=== PATIENT | female | born 2000 | race Caucasian/White ===

== ENCOUNTER 2022-05-17 06:03 | Emergency (ER) | payer MEDICAID ==
[~2022-05-17] VITALS: Ht 162 cm; Wt 55.0 kg
[2022-05-17] MEDS ORDERED: NORE1TAB95 (06:17)
--- NOTE | 2022-05-17 06:32 | ED Abdominal Pain ---
General Chief Complaint: Abdominal/GI Problems Stated Complaint: ABD PAIN,WEAKNESS Nursing Triage Note: C/O LOWER ABDOMINAL CRAMPING/WEAKNESS SINCE 19305/16/22 Source of Information: Patient Exam Limitations: No Limitations History of Present Illness Date Seen by Provider: May 17, 2022 Time Seen by Provider: 06:14 Initial Comments Patient to the ER by private conveyance from home with chief complaint that since 1829 last night she has been experiencing some cramping nearly constant pain all over in her abdomen, worse in the suprapubic region. She does not have any vaginal discharge, dysuria, diarrhea or constipation. She took some Tylenol at 1600 yesterday for a headache but nothing for this. She does not have a history of colitis irritable or inflammatory. She does not have a history of abdominal surgeries. Last menstrual period was a month after her delivery in August 2021. She been having a little brown spotting off and on since then but never had a period. She has no significant familial history. No trauma. Her son will be 1-year-old tomorrow. He has a rash with blisters on his hands and feet consistent with sepq-rxkt-xmk-mouth disease. No other sick contacts or travel. She rates her pain as a 7 out of 10. She has a history of chlamydia in 2018 that was tested as well as had a negative test of cure. Allergies and Home Medications Allergies Coded Allergies: No Known Drug Allergies (Unverified , 05/17/22) Patient Home Medication List Home Medication List Reviewed: Yes Doxycycline Hyclate (Doxycycline Hyclate) 100 Mg Tablet, 100 MG PO BID Prescribed by: CITLALLI ARREAGA on 05/17/22 08 Norethindrone-E.estradiol-Iron (Lo Loestrin Fe 1-10 Tablet) 1MG-10(24) Tablet, (Reported) Entered as Reported by: GIANA ROJO on 05/17/22 0617 Last Action: New Order Ondansetron (Ondansetron Odt) 4 Mg Tab.rapdis, 4 MG PO Q6H PRN for NAUSEA/VOMITING Prescribed by: CITLALLI ARREAGA on 05/17/22 0807 Review of Systems Review of Systems Constitutional: see HPI, chills; No diaphoresis, No fever EENTM: No Blurred Vision, No Double Vision Respiratory: Denies Cough, Denies Shortness of Air Cardiovascular: Denies Chest Pain, Denies Edema, Denies Lightheadedness Gastrointestinal: See HPI; Denies Abdomen Distended; Abdominal Pain; Denies Constipated, Denies Diarrhea, Denies Nausea Genitourinary: Denies Burning, Denies Discharge Musculoskeletal: No back pain, No joint pain Skin: No pruritus, No rash Psychiatric/Neurological: Denies Headache, Denies Numbness All Other Systems Reviewed Negative Unless Noted: Yes Past Rpwbvfr-Kepxje-Onkneo Hx Patient Social History Tobacco Use?: No Substance use?: No Alcohol Use?: No Pt feels they are or have been: No Past Medical History Surgery/Hospitalization HX: DENIES Last Menstrual Period: Aug 13, 2021 Physical Exam Vital Signs Vital Signs - First Documented 05/17/22 06:12 Temp 36.8 Pulse 105 Resp 18 B/P (MAP) 129/79 (96) Pulse Ox 97 O2 Delivery Room Air Capillary Refill : Less Than 3 Seconds Height/Weight/BMI Height: '" Weight: lbs. oz. kg; 20.00 BMI Method: General Appearance: WD/WN, no apparent distress HEENT: PERRL/EOMI, pharynx normal Neck: non-tender, full range of motion, supple, normal inspection Respiratory: lungs clear, normal breath sounds, no respiratory distress, no accessory muscle use Cardiovascular: normal peripheral pulses, regular rate, rhythm Peripheral Pulses: 2+ Radial Pulses (R), 2+ Radial Pulses (L) Gastrointestinal: normal bowel sounds, no organomegaly (No splenomegaly), guarding, tenderness (Tender all 4 quadrants but especially suprapubic region and over left upper quadrant.), other (She does not have a Rovsing sign or psoas sign. ) Extremities: normal inspection, no pedal edema, normal capillary refill Neurologic/Psychiatric: alert, oriented x 3, other (Tearful, pained expression) Skin: normal color, warm/dry Progress/Results/Core Measures Results/Orders Lab Results Laboratory Tests Test 05/17/22 06:30 05/17/22 06:39 05/17/22 07:50 Range/Units Urine Color YELLOW Urine Clarity CLEAR Urine pH 6.0 5-9 Urine Specific [place] 1.025 H 1.016-1.022 Urine Protein NEGATIVE NEGATIVE Urine Glucose (UA) NEGATIVE NEGATIVE Urine Ketones NEGATIVE NEGATIVE Urine Nitrite NEGATIVE NEGATIVE Urine Bilirubin NEGATIVE NEGATIVE Urine Urobilinogen 0.2 < = 1.0 MG/DL Urine Leukocyte Esterase NEGATIVE NEGATIVE Urine RBC (Auto) NEGATIVE NEGATIVE Urine RBC NONE /HPF Urine WBC 0-2 /HPF Urine Squamous Epithelial Cells 0-2 /HPF Urine Crystals NONE /LPF Urine Bacteria NEGATIVE /HPF Urine Casts NONE /LPF Urine Mucus NEGATIVE /LPF Urine Culture Indicated NO White Blood Count 11.1 H 4.3-11.0 10^3/uL Red Blood Count 4.79 3.80-5.11 10^6/uL Hemoglobin 14.1 11.5-16.0 g/dL Hematocrit 41 35-52 % Mean Corpuscular Volume 86 80-99 fL Mean Corpuscular Hemoglobin 29 25-34 pg Mean Corpuscular Hemoglobin Concent 34 32-36 g/dL Red Cell Distribution Width 12.3 10.0-14.5 % Platelet Count 227 130-400 10^3/uL Mean Platelet Volume 11.2 9.0-12.2 fL Immature Granulocyte % (Auto) 0 % Neutrophils (%) (Auto) 86 H 42-75 % Lymphocytes (%) (Auto) 7 L 12-44 % Monocytes (%) (Auto) 6 0-12 % Eosinophils (%) (Auto) 1 0-10 % Basophils (%) (Auto) 0 0-10 % Neutrophils # (Auto) 9.5 H 1.8-7.8 10^3/uL Lymphocytes # (Auto) 0.8 L 1.0-4.0 10^3/uL Monocytes # (Auto) 0.7 0.0-1.0 10^3/uL Eosinophils # (Auto) 0.1 0.0-0.3 10^3/uL Basophils # (Auto) 0.0 0.0-0.1 10^3/uL Immature Granulocyte # (Auto) 0.0 0.0-0.1 10^3/uL Neutrophils % (Manual) 86 % Lymphocytes % (Manual) 6 % Monocytes % (Manual) 7 % Eosinophils % (Manual) 1 % Blood Morphology Comment NORMAL Sodium Level 138 135-145 MMOL/L Potassium Level 3.6 3.6-5.0 MMOL/L Chloride Level 105 98-107 MMOL/L Carbon Dioxide Level 20 L 21-32 MMOL/L Anion Gap 13 5-14 MMOL/L Blood Urea Nitrogen 10 7-18 MG/DL Creatinine 0.76 0.60-1.30 MG/DL Estimat Glomerular Filtration Rate 115 BUN/Creatinine Ratio 13 Glucose Level 92 70-105 MG/DL Calcium Level 9.3 8.5-10.1 MG/DL Corrected Calcium 9.0 8.5-10.1 MG/DL Total Bilirubin 0.7 0.1-1.0 MG/DL Aspartate Amino Transf (AST/SGOT) 15 5-34 U/L Alanine Aminotransferase (ALT/SGPT) 14 0-55 U/L Alkaline Phosphatase 50 40-136 U/L C-Reactive Protein High Sensitivity 0.67 H 0.00-0.50 MG/DL Total Protein 7.6 6.4-8.2 GM/DL Albumin 4.4 3.2-4.5 GM/DL Lipase 33 8-78 U/L Monoscreen NEGATIVE NEGATIVE Micro Results Microbiology 05/17/22 Wet Prep - Final, Complete My Orders Orders - CITLALLI ARREAGA Ed Iv/Invasive Line Start (05/17/22 06:32) Lactated Ringers (Lr 1000 Ml Iv Solution (05/17/22 06:45) Ketorolac Injection (Toradol Injection) (05/17/22 06:45) Pantoprazole Injection (Protonix Injecti (05/17/22 06:45) Ua Culture If Indicated (05/17/22 06:32) Urine Bedside (05/17/22 06:32) Cbc With Automated Diff (05/17/22 06:32) Comprehensive Metabolic Panel (05/17/22 06:32) Hs C Reactive Protein (05/17/22 06:32) Lipase (05/17/22 06:32) Monotest (05/17/22 06:32) Manual Differential (05/17/22 06:39) Syphilis Antibody Screen (05/17/22 07:56) Wet Prep (05/17/22 07:56) Neisseria Gonorrhea Swab (05/17/22 07:56) Chlamydia Trachomatis Swab (05/17/22 07:56) Ceftriaxone (Rocephin) (05/17/22 08:00) Azithromycin Tablet (Zithromax Tablet) (05/17/22 08:00) Medications Given in ED Current Medications Medications Dose Ordered Sig/Elsie Route Start Time Stop Time Status Last Admin Dose Admin Ketorolac Tromethamine 30 mg ONCE ONCE IVP 05/17/22 06:45 05/17/22 06:46 DC 05/17/22 06:43 30 MG Lactated Ringer's 1,000 ml @ 0 mls/hr Q0M ONCE IV 05/17/22 06:45 05/17/22 06:46 DC 05/17/22 06:43 0 MLS/HR Pantoprazole 40 mg ONCE ONCE IV 05/17/22 06:45 05/17/22 06:46 DC 05/17/22 06:43 40 MG Vital Signs/I&O 05/17/22 06:12 Temp 36.8 Pulse 105 Resp 18 B/P (MAP) 129/79 (96) Pulse Ox 97 O2 Delivery Room Air Blood Pressure Mean: 96 Progress Progress Note #1: Time: 06:46 Progress Note Patient has pretty exquisite tenderness throughout her abdomen but especially the suprapubic region and left upper quadrant. She has a sore throat so we will get a monoscreen. She could have something viral, such as gastroenteritis. Less likely she is developing irritable bowel/inflammatory bowel symptoms. She is not having any diarrhea or bloody stools. She has not had a menstrual cycle in a while so we will take a good sexual history and check a bedside . We will check some labs including a CRP and a lipase. We will also consider things like pelvic inflammatory disease, ectopic , other. We will give her a liter of fluids, 30 mg of Toradol for her discomfort and then reassess her. Progress Note #2: Time: 08:01 Progress Note Labs are unremarkable. Patient has agreed to do a self swab of the cervix for gonorrhea, chlamydia. We added a syphilis antibody screen. We will give her a half a gram of Rocephin IV and 1 g of azithromycin p.o. to treat gonorrhea and chlamydia respectively. Plan to put her out on doxycycline for 2 weeks. Return precautions were given. Patient states her pain is now 2 out of 10 and was much more comfortable. Departure Impression Primary Impression: Abdominal pain Qualified Codes: R10.30 - Lower abdominal pain, unspecified Additional Impressions: PID (acute pelvic inflammatory disease) Bacterial vaginitis Disposition: 01 HOME, SELF-CARE Condition: Stable Departure-Patient Inst. Decision time for Depature: 08:34 Referrals: NO,LOCAL PHYSICIAN (PCP/Family) Primary Care Physician Patient Instructions: Pelvic Inflammatory Disease, Severe Abdominal Pain Add. Discharge Instructions: Drink plenty of fluids. Tylenol 1000 mg every 8 hours as needed for pain. Ibuprofen 800 mg every 8 hours needed for pain. You can also try Gas-X every 4-6 hours as needed for pain. Doxycycline 1 capsule twice a day for 2 weeks. Flagyl/metronidazole 1 tablet twice a day with food for a week. Probiotics 1 capsule twice a day for 2 weeks to prevent diarrhea associated with antibiotic use. Ondansetron 1 tablet every 6 hours as needed for nausea or vomiting. Expect some improvement in 3 to 4 days on antibiotics. Return to the ER promptly if you are having intractable pain, intractable vomiting or other worrisome symptoms. All discharge instructions reviewed with patient and/or family. Voiced understanding. Scripts Metronidazole (Metronidazole) 500 Mg Tablet 500 MG PO BID for 7 Days, #14 TAB 0 Refills Prov: CITLALLI ARREAGA 05/17/22 Ondansetron (Ondansetron Odt) 4 Mg Tab.rapdis 4 MG PO Q6H PRN for NAUSEA/VOMITING, #8 TAB 0 Refills Prov: CITLALLI ARREAGA 05/17/22 Doxycycline Hyclate (Doxycycline Hyclate) 100 Mg Tablet 100 MG PO BID for 14 Days, #28 TAB 0 Refills Prov: CITLALLI ARREAGA 05/17/22 Work/School Note: Work Release Form Date Seen in the Emergency Department: May 17, 2022 Return to Work: May 21, 2022 Restrictions: No Restrictions CITLALLI ARREAGA May 17, 2022 06:31
[2022-05-17 06:45] LABS: BILIRUBIN,URINE NEGATIVE (NEGATIVE); CLARITY,URINE CLEAR; COLOR,URINE YELLOW; GLUCOSE, URINE (UA) NEGATIVE (NEGATIVE); KETONES,URINE NEGATIVE (NEGATIVE); LEUKOCYTE ESTERASE ,URINE NEGATIVE (NEGATIVE); NITRITE,URINE NEGATIVE (NEGATIVE); PROTEIN,URINE NEGATIVE (NEGATIVE)
[2022-05-17] MEDS ORDERED: PANTOPRAZOLE 40 MG (PROTONIX) VIAL IV ONE (06:45)
[2022-05-17] MEDS ORDERED: KETOROLAC 30 MG/ML VIAL IVP ONE (06:45)
[2022-05-17] MEDS ORDERED: LACTATED RINGERS 1,000 ML IV ONE (06:45)
[2022-05-17 06:52] LABS: BACTERIA,URINE NEGATIVE /HPF; SQUAMOUS EPITHELIAL CELL,UR 0-2 /HPF; WBC,URINE 0-2 /HPF
[2022-05-17 07:11] LABS: BASOPHILS % (AUTO) 0 % (0-10); EOSINOPHILS # (AUTO) 0.1 10^3/uL (0.0-0.3); EOSINOPHILS % (AUTO) 1 % (0-10); HEMATOCRIT 41 % (35-52); HEMOGLOBIN 14.1 g/dL (11.5-16.0); LYMPHOCYTES # (AUTO) 0.8 10^3/uL (1.0-4.0); LYMPHOCYTES % (AUTO) 7 % (12-44); MEAN CORPUSCULAR HEMOGLOBIN 29 pg (25-34); MEAN CORPUSCULAR HGB CONC 34 g/dL (32-36); MEAN CORPUSCULAR VOLUME 86 fL (80-99); MEAN PLATELET VOLUME 11.2 fL (9.0-12.2); MONOCYTES # (AUTO) 0.7 10^3/uL (0.0-1.0); MONOCYTES % (AUTO) 6 % (0-12); NEUTROPHILS # (AUTO) 9.5 10^3/uL (1.8-7.8); NEUTROPHILS % (AUTO) 86 % (42-75); PLATELET COUNT 227 10^3/uL (130-400); WHITE BLOOD COUNT 11.1 10^3/uL (4.3-11.0)
[2022-05-17 07:21] LABS: ALBUMIN 4.4 GM/DL (3.2-4.5); POTASSIUM 3.6 MMOL/L (3.6-5.0)
[2022-05-17 07:22] LABS: CALCIUM 9.3 MG/DL (8.5-10.1)
[2022-05-17 07:23] LABS: TOTAL PROTEIN 7.6 GM/DL (6.4-8.2)
[2022-05-17 07:25] LABS: BILIRUBIN,TOTAL 0.7 MG/DL (0.1-1.0)
[2022-05-17 07:27] LABS: CREATININE SERUM 0.76 MG/DL (0.60-1.30)
[2022-05-17 07:38] LABS: EOSINOPHILS % (MANUAL) 1 %; LYMPHOCYTES % (MANUAL) 6 %; MONOCYTES % (MANUAL) 7 %; NEUTROPHILS % (MANUAL) 86 %; RBC MORPH NORMAL
[2022-05-17] MEDS ORDERED: AZITHROMYCIN 250 MG TAB (ZITHROMAX) PO ONE (08:00)
[2022-05-17] MEDS ORDERED: cefTRIAXone 500 MG in WATER (STERILE) FOR INJECTION 5 ML IV ONE (08:00)
[2022-05-17] MEDS ORDERED: DOXY100T2 PO (08:07)
[2022-05-17] MEDS ORDERED: ONDA4TAB11 PO (08:07)
[2022-05-17] MEDS ORDERED: METR-145 PO (08:35)
[2022-05-17 09:20] VITALS: BP 104/59
== END 2022-05-17 09:20 | disposition home or self-care (01) ==
LOC: ER 06:09
DX: N73.0 Acute parametritis and pelvic cellulitis (principal); N76.0 Acute vaginitis; B96.89 Other specified bacterial agents as the cause of diseases classified elsewhere
CPT/HCPCS: 36415; 80053; 81000; 83690; 84703; 85007; 85027; 86141; 86308; 86780; 87210; 87491; 87591

== ENCOUNTER 2022-12-13 19:29 | Emergency (ER) | payer MEDICAID ==
[~2022-12-13] VITALS: Ht 162.6 cm; Wt 61.2 kg
[~2022-12-13 19:29] MED LIST: DOXY100T2 PO; METR-145 PO; NORE1TAB95; ONDA4TAB11 PO
[2022-12-13 19:32] VITALS: BP 137/94
[2022-12-13 20:21] LABS: BILIRUBIN,URINE NEGATIVE (NEGATIVE); CLARITY,URINE CLEAR; COLOR,URINE YELLOW; GLUCOSE, URINE (UA) NEGATIVE (NEGATIVE); KETONES,URINE NEGATIVE (NEGATIVE); LEUKOCYTE ESTERASE ,URINE NEGATIVE (NEGATIVE); NITRITE,URINE NEGATIVE (NEGATIVE); PROTEIN,URINE NEGATIVE (NEGATIVE)
[2022-12-13 20:44] LABS: BASOPHILS # (AUTO) 0.1 10^3/uL (0.0-0.1); BASOPHILS % (AUTO) 1 % (0-10); EOSINOPHILS # (AUTO) 0.2 10^3/uL (0.0-0.3); EOSINOPHILS % (AUTO) 2 % (0-10); LYMPHOCYTES % (AUTO) 34 % (12-44); MEAN CORPUSCULAR HGB CONC 34 g/dL (32-36); MEAN CORPUSCULAR VOLUME 87 fL (80-99); MEAN PLATELET VOLUME 10.4 fL (9.0-12.2); MONOCYTES % (AUTO) 8 % (0-12); NEUTROPHILS % (AUTO) 55 % (42-75)
[2022-12-13 20:53] LABS: ALBUMIN 4.3 GM/DL (3.2-4.5); BILIRUBIN,TOTAL 0.2 MG/DL (0.1-1.0); CALCIUM 9.6 MG/DL (8.5-10.1); CREATININE SERUM 0.79 MG/DL (0.60-1.30); POTASSIUM 3.8 MMOL/L (3.6-5.0); TOTAL PROTEIN 8.2 GM/DL (6.4-8.2)
[2022-12-13 20:57] LABS: WHITE BLOOD COUNT 9.5 10^3/uL (4.3-11.0)
[2022-12-13 20:58] LABS: HEMATOCRIT 41 % (35-52); HEMOGLOBIN 13.8 g/dL (11.5-16.0); MEAN CORPUSCULAR HEMOGLOBIN 29 pg (25-34); NEUTROPHILS # (AUTO) 5.3 10^3/uL (1.8-7.8); PLATELET COUNT 286 10^3/uL (130-400)
[2022-12-13 20:59] LABS: LYMPHOCYTES # (AUTO) 3.2 10^3/uL (1.0-4.0); MONOCYTES # (AUTO) 0.8 10^3/uL (0.0-1.0)
--- NOTE | 2022-12-13 21:02 | ED General ---
General Chief Complaint: Cough/Cold/Flu Symptoms Stated Complaint: BODY ACHES, CONGESTION Nursing Triage Note: PT AMB TO RM 9 W C/O BODY ACHES, WEAKNESS, AND CP SX LAST NIGHT, LUND, COUGH, CONGESTION, AND PAIN W AMB IN R LOWER BACK X1 WK. PT A&OX4. (CHRIS LIZARRAGA) History of Present Illness Date Seen by Provider: Dec 13, 2022 Time Seen by Provider: 19:35 Initial Comments 22-year-old female presents for 2-week history of body aches, cough, fatigue, and respiratory congestion. She was seen initially at [facility] and started on amoxicillin for a sinus infection. She was seen again 12/10/2022 and tested for COVID and flu which were negative. She was told by the LOOM CHANGER at [facility] she was at high risk for PE due to OCPs and having COVID 3 times. She denies SOA. She also has mid back pain. Not taking any medication for the pain. Taking Zyrtec and a nasal spray. Timing/Duration: 1 Week Severity: Mild Associated Systoms: No Chest Pain; Cough; No Fever/Chills; Malaise; No Nausea/Vomiting, No Shortness of Air, No Weakness (CHRIS LIZARRAGA) Allergies and Home Medications Allergies Coded Allergies: No Known Drug Allergies (Unverified , 05/17/22) Patient Home Medication List Home Medication List Reviewed: Yes (CHRIS LIZARRAGA) Doxycycline Hyclate (Doxycycline Hyclate) 100 Mg Tablet, 100 MG PO BID Prescribed by: CITLALLI ARREAGA on 05/17/22 0807 Metronidazole (Metronidazole) 500 Mg Tablet, 500 MG PO BID Prescribed by: CITLALLI ARREAGA on 05/17/22 0835 Norethindrone-E.estradiol-Iron (Lo Loestrin Fe 1-10 Tablet) 1MG-10(24) Tablet, (Reported) Entered as Reported by: GIANA ROJO on 05/17/22 0617 Ondansetron (Ondansetron Odt) 4 Mg Tab.rapdis, 4 MG PO Q6H PRN for NAUSEA/VOMITING Prescribed by: CITLALLI ARREAGA on 05/17/22 0807 Review of Systems Review of Systems Constitutional: see HPI, malaise EENTM: see HPI, no symptoms reported Respiratory: see HPI, cough; No phlegm, No short of breath, No wheezing Cardiovascular: no symptoms reported, see HPI Gastrointestinal: no symptoms reported, see HPI Genitourinary: no symptoms reported, see HPI Musculoskeletal: see HPI, back pain, muscle cramps (CHRIS LIZARRAGA) All Other Systems Reviewed Negative Unless Noted: Yes (CHRIS LIZARRAGA) Past Wtwthnq-Bohpan-Bukenx Hx Patient Social History Tobacco Use?: No Use of E-Cig and/or Vaping dev: No Substance use?: No Alcohol Use?: Yes Alcohol Frequency: Once in a while (CHRIS LIZARRAGA) Immunizations Up To Date Influenza Vaccine Up-to-Date: No; Not Current (CHRIS LIZARRAGA) Past Medical History Surgery/Hospitalization HX: DENIES (CHRIS LIZARRAGA) Family Medical History Reviewed Nursing Family Hx (CHRIS LIZARRAGA) Physical Exam Vital Signs Vital Signs - First Documented 12/13/22 19:32 Temp 36.6 Pulse 95 Resp 18 B/P (MAP) 137/94 (108) Pulse Ox 99 O2 Delivery Room Air (JOHNNY,SURY K DO) Vital Signs Capillary Refill : Less Than 3 Seconds (CHRIS LIZARRAGA) Height, Weight, BMI Height: '" Weight: lbs. oz. kg; 23.00 BMI Method: General Appearance: No Apparent Distress, WD/WN, Anxious HEENT: PERRL/EOMI, TMs Normal, Normal ENT Inspection, Pharynx Normal Neck: Full Range of Motion, Normal Inspection, Non Tender, Supple Respiratory: Chest Non Tender, Lungs Clear, Normal Breath Sounds Cardiovascular: Regular Rate, Rhythm, No Murmur, Normal Peripheral Pulses Gastrointestinal: Normal Bowel Sounds, Non Tender, Soft Back: Normal Inspection, No CVA Tenderness, No Vertebral Tenderness; No Decreased Range of Motion, No Muscle Spasm, No Vertebral Tenderness Extremity: Normal Capillary Refill, Normal Inspection, Normal Range of Motion Neurologic/Psychiatric: Alert, Oriented x3, No Motor/Sensory Deficits, Normal Mood/Affect Skin: Normal Color, Warm/Dry (CHRIS LIZARRAGA) Progress/Results/Core Measures Suspected Sepsis SIRS Temperature: Pulse: 95 Respiratory Rate: 18 Laboratory Tests 12/13/22 20:18: White Blood Count 9.5 Blood Pressure 137 /94 Mean: 108 Laboratory Tests 12/13/22 20:18: Creatinine 0.79, Platelet Count 286, Total Bilirubin 0.2 ([employer]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) Results/Orders Lab Results Laboratory Tests Test 12/13/22 19:40 12/13/22 20:16 12/13/22 20:18 Range/Units Influenza Type A (RT-PCR) Not Detected Not Detecte Influenza Type B (RT-PCR) Not Detected Not Detecte SARS-CoV-2 RNA (RT-PCR) Not Detected Not Detecte Urine Color YELLOW Urine Clarity CLEAR Urine pH 6.0 5-9 Urine Specific [place] 1.010 L 1.016-1.022 Urine Protein NEGATIVE NEGATIVE Urine Glucose (UA) NEGATIVE NEGATIVE Urine Ketones NEGATIVE NEGATIVE Urine Nitrite NEGATIVE NEGATIVE Urine Bilirubin NEGATIVE NEGATIVE Urine Urobilinogen 0.2 < = 1.0 MG/DL Urine Leukocyte Esterase NEGATIVE NEGATIVE Urine RBC (Auto) NEGATIVE NEGATIVE Urine RBC NONE /HPF Urine WBC RARE /HPF Urine Squamous Epithelial Cells 5-10 /HPF Urine Crystals NONE /LPF Urine Bacteria TRACE /HPF Urine Casts NONE /LPF Urine Mucus NEGATIVE /LPF Urine Culture Indicated NO White Blood Count 9.5 4.3-11.0 10^3/uL Red Blood Count 4.68 3.80-5.11 10^6/uL Hemoglobin 13.8 11.5-16.0 g/dL Hematocrit 41 35-52 % Mean Corpuscular Volume 87 80-99 fL Mean Corpuscular Hemoglobin 29 25-34 pg Mean Corpuscular Hemoglobin Concent 34 32-36 g/dL Red Cell Distribution Width 11.9 10.0-14.5 % Platelet Count 286 130-400 10^3/uL Mean Platelet Volume 10.4 9.0-12.2 fL Immature Granulocyte % (Auto) 0 % Neutrophils (%) (Auto) 55 42-75 % Lymphocytes (%) (Auto) 34 12-44 % Monocytes (%) (Auto) 8 0-12 % Eosinophils (%) (Auto) 2 0-10 % Basophils (%) (Auto) 1 0-10 % Neutrophils # (Auto) 5.3 1.8-7.8 10^3/uL Lymphocytes # (Auto) 3.2 1.0-4.0 10^3/uL Monocytes # (Auto) 0.8 0.0-1.0 10^3/uL Eosinophils # (Auto) 0.2 0.0-0.3 10^3/uL Basophils # (Auto) 0.1 0.0-0.1 10^3/uL Immature Granulocyte # (Auto) 0.0 0.0-0.1 10^3/uL D-Dimer <= 0.27 0.00-0.49 UG/ML Sodium Level 139 135-145 MMOL/L Potassium Level 3.8 3.6-5.0 MMOL/L Chloride Level 104 98-107 MMOL/L Carbon Dioxide Level 23 21-32 MMOL/L Anion Gap 12 5-14 MMOL/L Blood Urea Nitrogen 10 7-18 MG/DL Creatinine 0.79 0.60-1.30 MG/DL Estimat Glomerular Filtration Rate 109 BUN/Creatinine Ratio 13 Glucose Level 87 70-105 MG/DL Calcium Level 9.6 8.5-10.1 MG/DL Corrected Calcium 9.4 8.5-10.1 MG/DL Total Bilirubin 0.2 0.1-1.0 MG/DL Aspartate Amino Transf (AST/SGOT) 18 5-34 U/L Alanine Aminotransferase (ALT/SGPT) 16 0-55 U/L Alkaline Phosphatase 53 40-136 U/L Total Protein 8.2 6.4-8.2 GM/DL Albumin 4.3 3.2-4.5 GM/DL Monoscreen NEGATIVE NEGATIVE Smear Scan YES (SURY TURNER DO) My Orders Orders - SURY TURNER DO Covid 19 Inhouse Test (12/13/22 19:47) Influenza A And B By Pcr (12/13/22 19:47) Isolation Central Supply Req (12/13/22 19:47) (SURY TURNER DO) Vital Signs/I&O 12/13/22 19:32 Temp 36.6 Pulse 95 Resp 18 B/P (MAP) 137/94 (108) Pulse Ox 99 O2 Delivery Room Air (SURY TURNER DO) Vital Signs/I&O Capillary Refill : Less Than 3 Seconds (CHRIS LIZARRAGA) Blood Pressure Mean: 108 Progress Note : Time: 19:35 Progress Note patient assessed, will check labs and re-evaluate. (CHRIS LIZARRAGA) Departure Impression Primary Impression: Viral URI with cough Disposition: HOME, SELF-CARE Condition: Improved Departure-Patient Inst. Decision time for Depature: 20:50 (CHRIS LIZARRAGA) Referrals: [facility] [place] NO,LOCAL PHYSICIAN (PCP) Primary Care Physician Patient Instructions: Viral Upper Respiratory Infection, Adult (DC) Add. Discharge Instructions: Increase rest, fluids, and well balanced diet. Over the counter cough/cold medicine, as needed. Follow up at [facility] if symptoms are not improving or worsen. Return to ER for new, urgent healthcare needs. All discharge instructions reviewed with patient and/or family. Voiced understanding. ATTENDING PHYSICIAN NOTE: I WAS PHYSICALLY PRESENT ER PHYSICIAN, BUT I WAS NOT INVOLVED IN ANY DECISION MAKING OR ANY CARE OF THIS PATIENT, AND I AM NOT COLLABORATING PHYSICIAN. (SURY TURNER DO) CHRIS LIZARRAGA Dec 13, 2022 21:02 SURY TURNER DO Dec 14, 2022 01:54
[2022-12-13 21:06] LABS: BACTERIA,URINE TRACE /HPF; WBC,URINE RARE /HPF
[2022-12-13 21:24] LABS: SMEAR SCAN COMMENT YES
== END 2022-12-13 21:42 | disposition home or self-care (01) ==
LOC: EDUNIT# 19:29 → ER 19:30
DX: J06.9 Acute upper respiratory infection, unspecified (principal); Z20.822 Contact with and (suspected) exposure to COVID-19; Z28.310 Unvaccinated for COVID-19
CPT/HCPCS: 36415; 80053; 81000; 84703; 85025; 85379; 86308; 87636

== ENCOUNTER 2023-01-24 23:48 | Emergency (ER) | payer MEDICAID ==
[2023-01-25] MEDS ORDERED: ONDANSETRON 4 MG (ZOFRAN) ORAL DISSOLVE TAB SL STA (00:18)
--- NOTE | 2023-01-25 00:26 | ED General ---
General Chief Complaint: Skin/Wound Problems Stated Complaint: POSS SPIDER BITE Nursing Triage Note: PT AMB TO FT2 WITH CC OF AREA OF CONCERN ON R BUTTOCK X2-3DAYS. PT STATES SHE BELEIVES IT COULD BE A SPIDER BITE BUT IS UNSURE. PT C/O LH, DIZZINESS, AND NAUSEA. Source of Information: Patient History of Present Illness Date Seen by Provider: Jan 25, 2023 Time Seen by Provider: 00:11 Initial Comments PT ARRIVES VIA POV FROM HOME PT WITH MULTIPLE COMPLAINTS SHE STATES SHE HAS A POSSIBLE "SPIDER BITE" TO HER RIGHT LATERAL HIP/BUTTOCK AREA. SHE NOTICED IT 2-3 DAYS AGO. A FEW DAYS BEFORE THAT, SHE HAS ANOTHER SIMILAR SPOT JUST MEDIAL TO IT. IT WENT AWAY AND IS NOW JUST A SMALL RED DOT. THERE IS SOME TENDERNESS TO THE AREA, BUT NO SWELLING OR DRAINAGE SHE DID NOT SEE OR FEEL ANYTHING BITE HER. LAST NIGHT, SHE BEGAN TO HAVE BODY ACHES TONIGHT ABOUT AN HOUR AGO, SHE BEGAN TO HAVE NAUSEA, VOMITING 2, ABDOMINAL CRAMPING, AND LIGHTHEADED AND DIZZINESS. NO DIARRHEA NO KNOWN FEVER NO COUGH/COLD SYMPTOMS LMP--PT DELIVERED IN 2020. SHE HAS BEEN ON LO-ESTRIN OCP'S. SHE STATES SHE HAS NOT HAD A PERIOD SINCE SHE DELIVERED. SHE DID HAVE SOME SPOTTING FOR A COUPLE OF DAYS, A COUPLE OF WEEKS AGO. NO CHRONIC MEDICAL PROBLEMS PCP: Allergies and Home Medications Allergies Coded Allergies: No Known Drug Allergies (Unverified , 05/17/22) Patient Home Medication List Dicyclomine HCl (Dicyclomine HCl) 20 Mg Tablet, 20 MG PO Q6H Prescribed by: SURY TURNER on 01/25/23 0112 Doxycycline Hyclate (Doxycycline Hyclate) 100 Mg Tablet, 100 MG PO BID Prescribed by: CITLALLI ARREAGA on 05/17/22 0807 Metronidazole (Metronidazole) 500 Mg Tablet, 500 MG PO BID Prescribed by: CITLALLI ARREAGA on 05/17/22 0835 Norethindrone-E.estradiol-Iron (Lo Loestrin Fe 1-10 Tablet) 1MG-10(24) Tablet, (Reported) Entered as Reported by: GIANA ROJO on 05/17/22 0617 Ondansetron (Ondansetron Odt) 4 Mg Tab.rapdis, 4 MG PO Q6H PRN for NAUSEA/VOMITING Prescribed by: CITLALLI ARREAGA on 05/17/22 0807 Ondansetron (Ondansetron Odt) 4 Mg Tab.rapdis, 4 MG PO Q4H Prescribed by: SURY TURNER on 01/25/23 0112 Review of Systems Review of Systems Constitutional: see HPI, dizziness; No fever; malaise EENTM: no symptoms reported Respiratory: no symptoms reported Cardiovascular: no symptoms reported Gastrointestinal: see HPI, abdominal pain; No constipation, No diarrhea; nausea, vomiting Genitourinary: no symptoms reported Musculoskeletal: see HPI (BODY ACHES) Skin: see HPI Psychiatric/Neurological: No Symptoms Reported; Denies Headache, Denies Numbness, Denies Paresthesia, Denies Tingling, Denies Weakness Hematologic/Lymphatic: No Symptoms Reported Immunological/Allergic: no symptoms reported Past Rdaleof-Awousr-Rwwbwt Hx Patient Social History Tobacco Use?: No Substance use?: No Alcohol Use?: Yes Alcohol Frequency: Once in a while Pt feels they are or have been: No Past Medical History Surgery/Hospitalization HX: DENIES Surgeries: No Respiratory: No Cardiac: No Neurological: No Reproductive Disorders: No Genitourinary: No Gastrointestinal: No Musculoskeletal: No Endocrine: No HEENT: No Cancer: No Psychosocial: No Integumentary: No Blood Disorders: No Physical Exam Vital Signs Vital Signs - First Documented 01/24/23 23:55 Temp 36.8 Pulse 119 Resp 16 B/P (MAP) 119/80 (93) Pulse Ox 98 O2 Delivery Room Air Capillary Refill : Less Than 3 Seconds Height, Weight, BMI Height: '" Weight: lbs. oz. kg; 23.00 BMI Method: General Appearance: No Apparent Distress, WD/WN, Thin HEENT: PERRL/EOMI, Normal ENT Inspection Neck: Normal Inspection Respiratory: Normal Breath Sounds, No Respiratory Distress Cardiovascular: Regular Rate, Rhythm, No Murmur Gastrointestinal: Soft Back: No CVA Tenderness, No Vertebral Tenderness Extremity: Normal Inspection Neurologic/Psychiatric: Alert, Oriented x3, No Motor/Sensory Deficits, paint stripper II- XII Norm as Tested Skin: Normal Color, Warm/Dry, Other (RIGHT LATERAL BUTTOCK WITH TINY CENTRAL PUNCTATION, WITH FAINT SURROUNDING ERYTHEMA APPROXIMATELY 3 CM IN DIAMETER. NO EDEMA OR INDURATION OR FLUCTUANCE. NO DRAINAGE. A FEW CM MEDIAL TO THIS IS A 3MM ERYTHEMATOUS PAPLULE. THIS IS NON-TENDER, NO DRAINAGE OR FLUCTUANCE. NO AREAS OF NECROSIS. ) Progress/Results/Core Measures Suspected Sepsis SIRS Temperature: Pulse: 119 Respiratory Rate: 16 Blood Pressure 119 /80 Mean: 93 Results/Orders Lab Results Laboratory Tests Test 01/25/23 00:30 Range/Units Urine Color YELLOW Urine Clarity CLEAR Urine pH 5.5 5-9 Urine Specific Regent >=1.030 1.016-1.022 Urine Protein 1+ H NEGATIVE Urine Glucose (UA) NEGATIVE NEGATIVE Urine Ketones NEGATIVE NEGATIVE Urine Nitrite NEGATIVE NEGATIVE Urine Bilirubin NEGATIVE NEGATIVE Urine Urobilinogen 0.2 < = 1.0 MG/DL Urine Leukocyte Esterase NEGATIVE NEGATIVE Urine RBC (Auto) NEGATIVE NEGATIVE Urine RBC 0-2 /HPF Urine WBC RARE /HPF Urine Squamous Epithelial Cells 25-50 H /HPF Urine Crystals NONE /LPF Urine Bacteria LARGE H /HPF Urine Casts NONE /LPF Urine Mucus LARGE H /LPF Urine Culture Indicated NO Influenza Type A (RT-PCR) Not Detected Not Detecte Influenza Type B (RT-PCR) Not Detected Not Detecte SARS-CoV-2 RNA (RT-PCR) Not Detected Not Detecte My Orders Orders - SURY TURNER DO Urine Bedside (01/25/23 00:18) Ua Culture If Indicated (01/25/23 00:18) Ondansetron Oral Dissolve Tab (Zofran (01/25/23 00:18) Covid 19 Inhouse Test (01/25/23 00:18) Influenza A And B By Pcr (01/25/23 00:18) Rx-Dicyclomine Capsule (Rx-Bentyl Capsul (01/25/23 01:12) Rx-Ondansetron Po (Rx-Zofran Po) (01/25/23 01:12) Vital Signs/I&O 01/24/23 23:55 Temp 36.8 Pulse 119 Resp 16 B/P (MAP) 119/80 (93) Pulse Ox 98 O2 Delivery Room Air Capillary Refill : Less Than 3 Seconds Blood Pressure Mean: 93 Departure Impression Primary Impression: Gastroenteritis Additional Impression: INSECT BITE RIGHT BUTTOCK Disposition: 01 HOME, SELF-CARE Condition: Stable Departure-Patient Inst. Decision time for Depature: 01:09 Referrals: LEANDRO PERDOMO DO [facility] [place] Instructions: Insect Bites and Stings ED, Viral Gastroenteritis, Adult (DC) Add. Discharge Instructions: CLEAR LIQUIDS--WATER, BROTH, JELLO, GATORADE DRINK ENOUGH SO YOU ARE URINATING EVERY 2-3 HOURS WHILE AWAKE WHEN YOUR NAUSEA AND PAIN IS BETTER, ADD BRATS DIET TO CLEAR LIQUIDS--BANANAS, RICE, APPLESAUCE, TOAST, SALTINES TYLENOL AND MOTRIN FOR PAIN FOLLOW UP WITH [facility] IN 2-3 DAYS IF NO BETTER, RETURN TO ER IF SYMPTOMS WORSEN All discharge instructions reviewed with patient and/or family. Voiced understanding. Scripts Ondansetron (Ondansetron Odt) 4 Mg Tab.rapdis 4 MG PO Q4H for Nausea/Vomiting, #10 TAB Prov: SURY TURNER DO 01/25/23 Dicyclomine HCl (Dicyclomine HCl) 20 Mg Tablet 20 MG PO Q6H for Abdominal Pain, #20 TAB Prov: SURY TURNER DO 01/25/23 Work/School Note: Work Release Form Date Seen in the Emergency Department: Jan 25, 2023 Return to Work: Jan 28, 2023 SURY TURNER DO Jan 25, 2023 00:25
[2023-01-25 00:36] LABS: BILIRUBIN,URINE NEGATIVE (NEGATIVE); CLARITY,URINE CLEAR; COLOR,URINE YELLOW; GLUCOSE, URINE (UA) NEGATIVE (NEGATIVE); KETONES,URINE NEGATIVE (NEGATIVE); LEUKOCYTE ESTERASE ,URINE NEGATIVE (NEGATIVE); NITRITE,URINE NEGATIVE (NEGATIVE); PH,URINE 5.5 (5-9); PROTEIN,URINE 1+ (NEGATIVE)
[2023-01-25 00:44] LABS: BACTERIA,URINE LARGE /HPF; RBC,URINE 0-2 /HPF; SQUAMOUS EPITHELIAL CELL,UR 25-50 /HPF; WBC,URINE RARE /HPF
[2023-01-25] MEDS ORDERED: ONDA4TAB11 PO (01:12)
[2023-01-25] MEDS ORDERED: RX-DICYCLOMINE 10 MG (BENTYL) CAP PPK#4 PO STA (01:12)
[2023-01-25] MEDS ORDERED: RX-ONDANSETRON 4 MG ODT (ZOFRAN) PPK #4 PO STA (01:12)
[2023-01-25] MEDS ORDERED: DICY20TA PO (01:12)
[2023-01-25 01:23] VITALS: BP 119/80
== END 2023-01-25 01:25 | disposition home or self-care (01) ==
LOC: EDUNIT# 23:48 → ER 23:51
DX: S30.860A Insect bite (nonvenomous) of lower back and pelvis, initial encounter (principal); K52.9 Noninfective gastroenteritis and colitis, unspecified; Z20.822 Contact with and (suspected) exposure to COVID-19; Z28.310 Unvaccinated for COVID-19; W57.XXXA Bitten or stung by nonvenomous insect and other nonvenomous arthropods, initial encounter
CPT/HCPCS: 81000; 84703; 87636; 99283